=== PATIENT | female | born 1995 | race Caucasian/White ===

== ENCOUNTER 2018-02-19 19:29 | Emergency (ER) | payer BC ==
[~2018-02-19] VITALS: Ht 162.6 cm; Wt 54.5 kg
[2018-02-19 19:31] VITALS: BP 117/78; PULSE 121; TEMP 99.8
[2018-02-19] MEDS ORDERED: AMOXICILLIN 50500 MG PO (19:53)
[2018-02-19] MEDS ORDERED: ADVIL200 MG PO (19:54)
== END 2018-02-19 20:12 | disposition home or self-care (01) ==
LOC: COL.ER 19:29
DX: J02.9 Acute pharyngitis, unspecified (principal)